=== PATIENT | male | born 1945 | race Caucasian/White ===

== ENCOUNTER → 2016-08-29 | Outpatient (CLI) | payer MEDICARE, BC | END | disposition home or self-care (01) | LOC: GMAL 14:02 | PROVIDERS: ATTEND Family Medicine | DX: Z12.5 Encounter for screening for malignant neoplasm of prostate (principal) | CPT/HCPCS: 83735; G0103 ==

== ENCOUNTER → 2017-01-21 | Outpatient (CLI) | payer MEDICARE, BC ==
--- NOTE | 2017-01-22 09:23 | US ---
EXAM DESCRIPTION: Liver: Ultrasound. CLINICAL HISTORY: ELEVATED TRANSAMINASE COMPARISON: None. TECHNIQUE: Transabdominal scannin-dimensional and Doppler modes. FINDINGS: The gallbladder contains small mobile echogenic stones with acoustic shadowing. No fluid around the gallbladder. No wall thickening. 2.7 mm. Common bile duct caliber is 6.6 mm which is dilated. No stones in the visualized portion of the duct. Not tender with transducer pressure. The liver demonstrates normal echogenicity; contour of the liver capsule is smooth where seen. No fluid around the liver. Intrahepatic biliary ducts are non-dilated. Craniocaudal dimension in the mid-clavicular axis is 17.2 cm. Pancreas head, body, tail normal in size and echogenicity. Pancreatic duct is not dilated. IMPRESSION: 1. Cholelithiasis. Gallbladder wall not thickened. No fluid around the gallbladder. Common bile duct dilated but no definite stones seen in the duct. 2. Normal echoes in the liver with no intrahepatic biliary dilatation. Mildly enlarged. No ascites. Normal ultrasound of the pancreas. Electronically signed by: Julian Mejia MD 01/22/2017 9:22 AM CDT
== END | disposition home or self-care (01) ==
LOC: US 11:40
PROVIDERS: ATTEND Internal Medicine Gastroenterology
DX: R74.0 Nonspecific elevation of levels of transaminase and lactic acid dehydrogenase [LDH] (principal); K80.20 Calculus of gallbladder without cholecystitis without obstruction

== ENCOUNTER → 2017-03-25 | Outpatient (CLI) | payer MEDICARE, BC | LOC: RESP 11:02 | PROVIDERS: ATTEND Nuclear Medicine Nuclear Cardiology | DX: R00.2 Palpitations (principal); I11.9 Hypertensive heart disease without heart failure ==

== ENCOUNTER → 2017-09-19 | Outpatient (CLI) | payer MEDICARE, BC | LOC: LAB.O 10:38 | PROVIDERS: ATTEND Internal Medicine Rheumatology | DX: Z79.899 Other long term (current) drug therapy (principal) ==

== ENCOUNTER → 2017-12-17 | Outpatient (CLI) | payer MEDICARE, BC | LOC: LAB.O 12:25 | PROVIDERS: ATTEND Family Medicine | DX: G70.00 Myasthenia gravis without (acute) exacerbation (principal) ==

== ENCOUNTER → 2017-12-31 | Outpatient (CLI) | payer MEDICARE, BC | LOC: LAB.O 09:50 | PROVIDERS: ATTEND Internal Medicine Rheumatology | DX: Z79.899 Other long term (current) drug therapy (principal) ==

== ENCOUNTER → 2018-02-19 | Outpatient (CLI) | payer MEDICARE, BC ==
--- NOTE | 2018-02-19 13:19 | CT ---
EXAM DESCRIPTION: Soft Tissue Neck w/Contrast: Computed Tomography CLINICAL HISTORY: 72 years Male, BENIGN NEOPLASM OF SCALP AND NECK COMPARISON: CT scan of the chest with IV contrast. MRI scan of the thoracic spine. TECHNIQUE: Spiral, axial 2.5 x 2.5 mm scans through the neck soft tissues after infusion of IV contrast. Sagittal and coronal 2.0 mm reconstructions. No adverse reactions. Total Exam DLP: 1238.94 mGy-cm. This exam was performed according to our departmental CT dose-optimization program which includes automated exposure control, adjustment of the mA and/or kV according to patient size and/or use of iterative reconstruction technique; to reduce radiation dose to as low as reasonably achievable (ALARA). FINDINGS: No abnormal enhancement mass or effacement of the nasopharynx, oropharynx, hypopharynx. Ill-defined partially enhancing mass in the posterior midline and right paracentral larynx measuring approximately 1.3 x 1.2 cm. Normal caliber of the airway inferior to this mass. Asymmetry in the thyroid gland larger on the right than the left. No masses or adenopathy abutting the airway. Heterogeneous enhancement of the thyroid gland. No adenopathy abutting the gland. No adenopathy in the paracervical space, parapharyngeal space, or bilateral carotid spaces. Normal size and enhancement of the bilateral parotid glands and submandibular glands. Minimal number of small nodes abutting the salivary glands. No abnormality in the subcutaneous adipose tissue. The cartilage mandible and maxillary bone or unremarkable. Beam scatter from dental hardware. No significant mucoperiosteal thickening or air-fluid levels in the included paranasal sinuses, or mastoid air cells. Internal auditory structures are grossly normal. Included lung brady are negative. ACDF C3-4 level with spondylosis. Significant bilateral foraminal narrowing and facet arthrosis. Arthrosis of the atlantoaxial joint and partial fusion of the bilateral atlantooccipital joints. Question of anomalous C5 and C6 vertebra with partial fusion of the disc spaces. Spondylosis at C6-7 with facet arthrosis and significant foraminal narrowing. Also somewhat anomalous appearing C7 and T1 vertebral bodies with partial fusion of the disc space.. IMPRESSION: 1. Questionable small 1.3 cm mass in the posterior larynx with mass effect on the airway in the esophagus. This could represent inflammatory or infectious lesion or neoplasm. No adjacent soft tissue mass or adenopathy. Consider ENT consult. 2. Extensive spondylosis in the cervical spine with ACDF fusion at C3-4 with spondylosis and significant neural foraminal narrowing. 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 Mild ankylosis in the cervical spine. Electronically signed by: Julian Mejia MD 02/19/2018 1:17 PM CDT
--- NOTE | 2018-02-19 15:31 | MRI ---
EXAM DESCRIPTION: Thoracic Spine w/wo Contrast: Magnetic Resonance Imaging. CLINICAL HISTORY: FRACTURE COMPARISON: CT scan of the neck soft tissues, and CT scan of the chest on this visit, TECHNIQUE: Multiplanar, multiple standard sequences, non contrast, and post IV gadolinium contrast MRI, thoracic spine. FINDINGS: Diffuse marrow edema in the T3 vertebral body also extending into the pedicles bilaterally. Anterior height of the vertebral body is 7.7 mm compared to 18.5 mm anteriorly at T4. Retropulsion of the posterior superior vertebral body 3 mm impressing on the ventral cord. The retropulsed bone enhances. No cord edema or cord enhancement. Some of the compressed fragments in the vertebral body or enhancing. Hyperintense minimal paravertebral soft tissue swelling to the left of the vertebral body. T1 and T2 and inversion recovery signal in the vertebral body and the bilateral pedicles. T3-T4 disc space is decreased with next signal in the disc which is not enhancing and is not bulging. Minimal desiccation. Mild left foraminal narrowing with right foramen patent. In the inferior T2 endplate is dark inversion recovery signal with bright T2 and T1 signal and trace amount of contrast enhancement. This is more consistent with Modic type I endplate reactive change. This signal does not extend into the T2 pedicles bilaterally. No hemorrhage soft tissue mass or fluid in the canal impressing on the cord at this level. Widened T2-3 disc at this level with desiccated signal, no posterior bulging and no canal stenosis. Left foramen is patent with mild narrowing of the right foramen. No enhancement in the disc. Circumscribed hyperintense signal in the T5, T11, and T10 vertebral bodies on T1 and T2 sequences. Bright signal on inversion recovery with no contrast enhancement. Consistent with hemangiomas. Small T8-T9 and T9-T10 disc spaces with posterior bony fusion of the disc spaces. This material in the posterior disc space at T9-T10 is hyperintense on T1 and T2 sequence, but same signal as bone on inversion recovery without contrast enhancement. The canal and foramina are patent at this level. Normal cord signal. Schmorl's node in the superior T12 endplate with disc desiccation but no bulging. No abnormal enhancement. Canal and foramina are patent. Bilateral nerve root sleeves cysts are not enhancing. Anterior disc desiccation at T7-T8 with Modic type II endplate reactive changes and minimal enhancement. No fluid or enhancement in the disc. Canal is patent. Minimal foraminal narrowing. Desiccation also in the T6-T7 disc with minimal disc space loss. Canal and foramina are patent. Posterior elements unremarkable. No abnormal contrast enhancement. Remaining discs with normal signal. Disc spaces are preserved. Canal and foramina are patent. No scoliosis. Facet joints are unremarkable. Conus terminates at L1. No contrast enhancement of the conus or elsewhere in the included cord. Other Paravertebral soft tissues are unremarkable. Normal marrow signal in the remaining vertebral bodies and the posterior elements. IMPRESSION: 1. Compression of the T3 vertebral body anteriorly and centrally approximately 50%. T1 signal in the vertebral body is suggestive of hemorrhage. Spotty enhancement. Minimal marrow edema in the bilateral pedicles with no contrast enhancement. Question of bilateral lamina edema. Retropulsion of the vertebral body impresses on the ventral cord. No cord compression. Retropulsed bone with minimal enhancement. No cord enhancement. No hematoma in the canal or fluid collection. No significant paravertebral hematoma or fluid collection. 2. Mild to moderate spondylosis of the inferior T2 endplate with desiccation of the T2-3 disc. Foraminal narrowing but no significant canal narrowing. 3. No other vertebral bodies with compression and no cord compression at any level. No cord impingement at other levels except for T3. 4. Question of partial fusion of posterior T8-9 and T9-10 discs which may be congenital with no other anomalies seen at these levels. No canal or foraminal stenosis. Electronically signed by: Julian Mejia MD 02/19/2018 3:30 PM CDT
--- NOTE | 2018-02-20 08:43 | CT ---
EXAM DESCRIPTION: Chest w/Contrast : Computed Tomography. CLINICAL HISTORY: UNSPECIFIED ABNORMALITIES OF BREATHING COMPARISON: CT scan of the neck soft tissues and MRI scan of the thoracic spine on the same visit. TECHNIQUE: Spiral-axial scans at 5 x 5 mm intervals through the lungs and thorax with IV contrast. 2.5 x 5 mm lung algorithm axial reconstructions. Coronal and sagittal 2.0 Mm reconstructions. No adverse reactions. Total Exam DLP: 1238.94 mGy-cm. This exam was performed according to our departmental dose-optimization program which includes automated exposure control, adjustment of the mA and/or kV according to patient size and/or use of iterative reconstruction technique; to reduce radiation dose to as low as reasonably achievable (ALARA). Nodule measurements under 10 mm are given as mean value of 3 axes measurements. FINDINGS: Lungs and airways: Scarring in the posterior recess of the left lower lobe also involving the pleura. Dependent atelectasis in the posterior aspect of the superior segment of the right lower lobe. Groundglass nodule versus infiltrate 6 mm in the junction of the upper lingula and more superior segments of the right upper lobe. Lung window axial sequence 6, image 72. Pleural Spaces: Occasional focal pleural thickening with no effusion or pneumothorax. Mediastinum and veronika: No enlarged lymph nodes or soft tissue masses. Great vessels and heart: Atherosclerotic calcifications in the aortic arch and the proximal brachio-cephalic vessels. Coronary artery calcifications. Soft tissues of neck base, axilla, and chest wall: No soft tissue masses or enlarged lymph nodes. Upper abdomen: Normal size and enhancement of the spleen and adrenal glands. Two gravity dependent radiodense stones in the gallbladder. Possible fatty infiltration of the liver. No free fluid in the peritoneal cavity. Osseous structures: Arthrosis in the bilateral sternoclavicular joints. Minimal anterior concavity of the sternum. Compression fracture of T3 with posterior retropulsion. Please refer to thoracic spine MRI scan. ACDF C3-4. 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 Please see thoracic MRI report. IMPRESSION: 1. Small infiltrate versus 6 mm groundglass nodule in the left upper lobe. Dependent atelectasis in the posterior aspect of the superior right lower lobe. 6-[address] scan follow-up. See below for [facility] Best Practice recommendations utilizing Fleischner Society 2017 guidelines.* 2. Abnormalities in the cervical and thoracic spine. Please refer to neck CT scan and thoracic spine MRI examinations and reports. 2017 Fleischner Society Recommendations for Subsolid Lung Nodule Follow-Up based on size (average of long- and short-axis diameters). Use most suspicious nodule for followup. Single > or = 6 mm Ground glass: CT at 6-12 months to confirm persistence, then CT every 2 years until 5 years > or = 6 mm Part solid: CT at 3-6 months to confirm persistence, If unchanged and solid component remains<6mm, annual CT should be performed for 5 years. Electronically signed by: Julian Mejia MD 02/20/2018 8:42 AM CDT
== END ==
LOC: CT 09:00
DX: R06.9 Unspecified abnormalities of breathing (principal); J98.11 Atelectasis; D23.4 Other benign neoplasm of skin of scalp and neck; S22.030A Wedge compression fracture of third thoracic vertebra, initial encounter for closed fracture; M47.892 Other spondylosis, cervical region

== ENCOUNTER → 2018-11-03 | Outpatient (CLI) | payer MEDICARE, BC | LOC: GMAL 11:52 | PROVIDERS: ATTEND Family Medicine | DX: D51.3 Other dietary vitamin B12 deficiency anemia (principal); I10 Essential (primary) hypertension; E11.9 Type 2 diabetes mellitus without complications; E78.49 Other hyperlipidemia; R53.83 Other fatigue; E55.9 Vitamin D deficiency, unspecified; Z12.5 Encounter for screening for malignant neoplasm of prostate ==

== ENCOUNTER → 2019-07-03 | Outpatient (CLI) | payer MEDICARE, BC | DX: M45.9 Ankylosing spondylitis of unspecified sites in spine (principal) ==

== ENCOUNTER → 2019-12-22 | Outpatient (CLI) | payer MEDICARE, BC | LOC: LAB.O 12:09 | PROVIDERS: ATTEND Internal Medicine Rheumatology | DX: Z79.899 Other long term (current) drug therapy (principal) ==

== ENCOUNTER → 2020-02-18 | Outpatient (CLI) | payer MEDICARE, BC | LOC: LAB.O 12:38 | PROVIDERS: ATTEND Physician Assistant | DX: J06.9 Acute upper respiratory infection, unspecified (principal) ==